=== PATIENT | male | born 1950 | race Caucasian/White ===

== ENCOUNTER 2023-10-07 10:59 | Outpatient (CLI) | payer MEDICARE, SELFPAY | END 2023-10-07 11:00 | disposition home or self-care (01) | LOC: INJ CL 11:06 | PROVIDERS: PCP Family Medicine; Visit Provider Family Medicine | DX: M54.16 Radiculopathy, lumbar region (principal); M48.062 Spinal stenosis, lumbar region with neurogenic claudication | CPT/HCPCS: 64483; J1100; Q9966 ==